=== PATIENT | male | born 1955 | race Caucasian/White ===

== ENCOUNTER 2017-12-21 17:11 | Emergency (ER) | payer OTHER ==
[~2017-12-21] VITALS: Ht 185.4 cm; Wt 76.2 kg
[~2017-12-21 17:11] MED LIST: ALBUTEROL INHAL17 GM IH; ALTACE5 M1 PO; AMOXICILLIN 50500 M1 PO; ASA81BEC PO; AZITHROMYCIN 2250 MG PO; BUSPIRONE HCL10 MG; COLON HERBAL C1 EACH; DOXYCYCLINE 10100 MG PO; FISH OIL 1,001000 M2 PO; FLEXERIL PO; HYDROCODON-ACE1 EAC7 PO; HYDROCODONE-APA1 TA1 PO; IBUPROFEN 800800 M1 PO; LISINOPRIL5 MG PO; MEDROLDOSEPACK PO; METAMUCIL POWD575 G1 PO; NORVASC5 MG; PLAVIX 75 MG TA75 M1; PREDNISONE50 MG PO; PRILOSEC OTC20 MG; PROPRANOLOL 1010 MG PO; PROTONIX 20 MG20 MG PO; PROTONIX40 M4; PROVENTIL HFA6.7 G1 INH; ROBAXIN500 MG PO; TESSALON PERLE100 M1 PO; TOPROL XL25 MG PO; VITAMIN B-1100 M1 PO; VITAMIN D2000 UNIT PO; XANAX 0.5 MG0.5 MG; ZOFRAN ODT4 MG PO; [UNRECOGNIZED DRUG - OTHER]; [UNRECOGNIZED DRUG - OTHER]
[2017-12-21] MEDS ORDERED: COQ-10100 MG PO (17:22)
[2017-12-21] MEDS ORDERED: XANAX 0.5 MG0.5 MG PO (17:23)
[2017-12-21 17:38] LABS: ABSOLUTE BASOPHILS 0.1 thou/uL (0.0-0.2); ABSOLUTE EOSINOPHILS 0.2 thou/uL (0.0-0.7); ABSOLUTE LYMPHOCYTES 2.3 thou/uL (0.8-5.3); ABSOLUTE MONOCYTES 0.7 thou/uL (0.0-1.2); ABSOLUTE NEUTROPHILS 7.8 thou/uL (1.6-8.1); BASOPHILS 1.1 %; EOSINOPHILS 1.8 %; LYMPHOCYTES 20.6 %; MCH 31.2 pg (26.0-34.0); MCHC 33.4 g/dL (28.0-37.0); MCV 93.5 fL (80.0-100.0); MONOCYTES 6.3 %; MPV 7.4 fl. (7.2-11.1); NUCLEATED RBCS 0 /100WBC; PLATELET COUNT* 356 thou/uL (150-400); POLYS 70.2 %; RBC 4.81 mil/uL (4.50-6.00); RDW-CV 14.1 % (10.5-14.5); WBC 11.1 thou/uL (4.0-11.0)
[2017-12-21 17:46] LABS: ANION GAP 9 mmol/L (7-16); BUN 19 mg/dL (7-18); CALCIUM 9.4 mg/dL (8.5-10.1); CHLORIDE 104 mmol/L (98-107); CO2 28 mmol/L (21-32); CREATININE 1.2 mg/dL (0.6-1.3); GLUCOSE 119 mg/dL (70-99); SODIUM 141 mmol/L (136-145)
[2017-12-21 17:48] LABS: APTT 27.1 Seconds (25.0-31.3); INR 1.1; PROTIME 11.1 Seconds (9.20-11.50)
[2017-12-21 18:05] LABS: ALBUMIN 3.9 g/dL (3.4-5.0); ALKALINE PHOSPHATASE 92 U/L (46-116); CK-MB MASS 1.1 ng/mL (<0.5-3.6); LIPASE 127 U/L (73-393); MAGNESIUM 1.7 mg/dL (1.8-2.4); NT-PRO BRAIN NAT PEPTIDE 124 pg/mL (<300); SGOT 14 U/L (15-37); SGPT 20 U/L (30-65); TOTAL BILIRUBIN 0.3 mg/dL (<0.1-1.0); TOTAL PROTEIN 7.1 g/dL (6.4-8.2); TROPONIN-I LEVEL <0.06 ng/mL (<0.06)
[2017-12-21 18:23] VITALS: BP 132/81
--- NOTE | 2017-12-22 11:41 | EKG ---
[place] [address] ELECTROCARDIOGRAM REPORT Name: LILLI ALNG Room: [facility]#: [id number] Admission: 12/21/17 Attend Phys: Discharge: 12/21/17 Date of : 51 Report #: [id number] THIS REPORT FOR: //name// [facility] ED Test Date: 2017-12-21 Test Time: 17:21:32 Pat Name: LILLI LANG Department: Room: Gender: M [employer]wall [employer]man: : 1955 Requested By: Jonny Jerome Order Number: [id number] MD: Jere Berrios Measurements Intervals [place] Rate: 93 P: 74 SD: 153 QRS: 55 QRSD: 106 T: 53 QT: 351 QTc: 437 Interpretive Statements Sinus rhythm Ventricular premature complex Right atrial enlargement Consider right ventricular hypertrophy Compared to ECG 06/15/2017 00:05:31 Ventricular premature complex(es) now present Electronically Signed On 12-22-2017 11:41:08 CDT by Jere Berrios [email or web address] <ELECTRONICALLY SIGNED> By: Jere Berrios MD, [facility] 12/22/17 1141 [id number] Jere Berrios MD, [facility] /EPI
== END 2017-12-21 18:24 | disposition home or self-care (01) ==
LOC: M.ERS 17:11
PROVIDERS: Family Medicine
DX: R00.2 Palpitations (principal); K21.9 Gastro-esophageal reflux disease without esophagitis; I10 Essential (primary) hypertension; I21.9 Acute myocardial infarction, unspecified; J45.909 Unspecified asthma, uncomplicated; Z95.5 Presence of coronary angioplasty implant and graft; F17.210 Nicotine dependence, cigarettes, uncomplicated; Z88.5 Allergy status to narcotic agent; Z88.8 Allergy status to other drugs, medicaments and biological substances

== ENCOUNTER 2018-03-07 17:53 | Emergency (ER) | payer OTHER ==
[~2018-03-07] VITALS: Ht 185.4 cm; Wt 78.6 kg
[~2018-03-07 17:53] MED LIST changes: +COQ-10100 MG PO; +XANAX 0.5 MG0.5 MG PO
[2018-03-07 18:26] LABS: ABSOLUTE BASOPHILS 0.1 thou/uL (0.0-0.2); ABSOLUTE EOSINOPHILS 0.2 thou/uL (0.0-0.7); ABSOLUTE LYMPHOCYTES 2.1 thou/uL (0.8-5.3); ABSOLUTE MONOCYTES 0.8 thou/uL (0.0-1.2); ABSOLUTE NEUTROPHILS 7.2 thou/uL (1.6-8.1); BASOPHILS 1.1 %; HEMATOCRIT 45.6 % (42.0-52.0); HEMOGLOBIN 15.6 gm/dL (14.0-18.0); LYMPHOCYTES 19.8 %; MCH 31.7 pg (26.0-34.0); MCHC 34.2 g/dL (28.0-37.0); MCV 92.9 fL (80.0-100.0); MONOCYTES 7.7 %; MPV 7.6 fl. (7.2-11.1); NUCLEATED RBCS 0 /100WBC; PLATELET COUNT* 341 thou/uL (150-400); POLYS 69.4 %; RBC 4.91 mil/uL (4.50-6.00); RDW-CV 14.4 % (10.5-14.5); WBC 10.4 thou/uL (4.0-11.0)
[2018-03-07 18:31] LABS: ANION GAP 7 mmol/L (7-16); APTT 28.3 Seconds (25.0-31.3); BUN 18 mg/dL (7-18); CALCIUM 9.4 mg/dL (8.5-10.1); CHLORIDE 103 mmol/L (98-107); CO2 28 mmol/L (21-32); GLUCOSE 99 mg/dL (70-99); INR 1.1; POTASSIUM 4.1 mmol/L (3.5-5.1); PROTIME 10.7 Seconds (9.20-11.50); SODIUM 138 mmol/L (136-145)
[2018-03-07 18:41] LABS: ALBUMIN 3.9 g/dL (3.4-5.0); ALKALINE PHOSPHATASE 95 U/L (46-116); NT-PRO BRAIN NAT PEPTIDE 172 pg/mL (<300); SGOT 18 U/L (15-37); SGPT 21 U/L (30-65); TOTAL BILIRUBIN 0.3 mg/dL (<0.1-1.0); TOTAL PROTEIN 7.5 g/dL (6.4-8.2); TROPONIN-I LEVEL <0.06 ng/mL (<0.06)
[2018-03-07 18:48] VITALS: BP 158/90
[2018-03-07 18:48] LABS: URINE BILIRUBIN NEGATIVE (Negative); URINE CLARITY CLEAR; URINE COLOR YELLOW; URINE GLUCOSE-RANDOM NEGATIVE (Negative); URINE KETONES NEGATIVE (Negative); URINE PROTEIN NEGATIVE (Negative)
[2018-03-07 18:49] LABS: URINE BLOOD 1+ (Negative); URINE LEUKOCYTES-REFLEX NEGATIVE (Negative); URINE NITRITE-REFLEX NEGATIVE (Negative); URINE UROBILINOGEN 0.2 E.U./dl (0.2-1.0)
[2018-03-07 18:56] LABS: MUCUS >6 Heavy strn/LPF (None Seen)
[2018-03-07 18:57] LABS: BACTERIA-REFLEX None Seen /HPF (None Seen); CASTS None Seen /LPF (None Seen); CRYSTALS None Seen /LPF (None Seen); SQUAMOUS NONE SEEN /LPF (0-3); URINE RBC 0-2 Rare /HPF (0-2); URINE WBC-REFLEX None Seen /HPF (0-5)
--- NOTE | 2018-03-08 12:31 | EKG ---
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 DOE : 1955 Requested By: Jonny Jerome Order Number: [id number] MD: Darien Simon Measurements Intervals [place] Rate: 75 P: 67 AK: 156 QRS: 12 QRSD: 104 T: 34 QT: 367 QTc: 410 Interpretive Statements Sinus rhythm Probable left atrial enlargement RSR' in V1 or V2, right VCD or RVH Compared to ECG 12/21/2017 17:21:32 RSR' in V1 or V2 now present Ventricular premature complex(es) no longer present Electronically Signed On 03-08-2018 12:31:08 CDT by Darien Simon [email or web address] <ELECTRONICALLY SIGNED> By: Darien Simon MD, FACC 03/08/18 1231 [id number] Darien Simon MD, FACC /EPI
== END 2018-03-07 18:50 | disposition home or self-care (01) ==
LOC: M.ERS 17:53
PROVIDERS: Family Medicine
DX: I10 Essential (primary) hypertension (principal); J45.909 Unspecified asthma, uncomplicated; K21.9 Gastro-esophageal reflux disease without esophagitis; I25.2 Old myocardial infarction; F17.210 Nicotine dependence, cigarettes, uncomplicated; Z88.1 Allergy status to other antibiotic agents; Z88.5 Allergy status to narcotic agent; Z88.8 Allergy status to other drugs, medicaments and biological substances

== ENCOUNTER 2018-09-07 17:18 | Emergency (ER) | payer OTHER ==
[~2018-09-07] VITALS: Ht 185.4 cm; Wt 79.4 kg
[2018-09-07] MEDS ORDERED: PROTONIX 20 MG20 M1 PO (17:27)
[2018-09-07 19:55] VITALS: BP 170/86
== END 2018-09-07 19:15 | disposition left against medical advice (07) ==
LOC: M.ERS 17:18
DX: Z53.21 Procedure and treatment not carried out due to patient leaving prior to being seen by health care provider (principal)